=== PATIENT | female | born 1990 | race Caucasian/White ===

== ENCOUNTER 2018-10-13 15:17 | Emergency (ER) | payer BC, SELFPAY ==
[2018-10-13 15:30] VITALS: BP 129/75; PULSE 139; TEMP 37.6; O2SAT 96
[2018-10-13 16:04] LABS: Abs Immature Grans 0.03 k/cumm (0.0-0.09); Absolute Basophil Count 0.01 k/cumm (0.0-0.2); Absolute Lymphocyte Count 1.65 k/cumm (1.2-3.4); Absolute Monocyte Count 0.85 k/cumm (0.11-0.7); Absolute Neutrophil Count 10.95 k/cumm (1.2-6.7); Basophils % 0.1; HCT 39.6 % (36.0-46.0); HGB 13.3 g/dL (12.0-15.5); Immature Grans % 0.2; Lymphocytes % 12.2; Mean Corp. HGB Concentration 33.6 g/dL (32.0-36.0); Mean Corpuscular Hemoglobin 28.1 pg (27.0-33.0); Mean Corpuscular Volume 83.7 fL (80-95); Mean Platelet Volume 8.2 fL (8.0-11.0); Monocytes % 6.3; Neutrophils % 81.2; Platelet Count 471 x1000/uL (130-400); RBC 4.73 m/cumm (4.00-5.20); RBC Distribution Width 13.6 % (11.7-14.6); White Blood Cell Count 13.49 k/cumm (4.4-10.8)
[2018-10-13] MEDS: Acetaminophen 500 MG TAB 1000 MG PO (16:08)
[2018-10-13] MEDS: Lactated Ringers 1,000 ML 1000 ML IV (16:09)
[2018-10-13 16:21] LABS: ALT 46 U/L (12-78); AST 29 U/L (15-37); Albumin 3.8 g/dL (3.4-5.0); Alkaline Phosphatase 70 U/L (46-116); Anion Gap 13.8 mmol/L (3-11); BUN 8 mg/dL (7-18); Bilirubin, Total 0.3 mg/dL (0.2-1.0); CO2 23.2 mmol/L (21.0-32.0); CREATININE 0.82 mg/dL (0.55-1.02); Calcium 8.9 mg/dL (8.5-10.1); Chloride 98 mmol/L (98-107); Glucose 122 mg/dL (70-100); Potassium 3.4 mmol/L (3.5-5.1); Sodium 135 mmol/L (136-145); Total Protein 8.5 g/dL (6.4-8.2)
--- NOTE | 2018-10-13 16:52 | DI.RAD_ITS ---
SYMPTOM/DIAGNOSIS: COUGH, FEVER PA AND LATERAL CHEST: The exam is limited by respiratory motion on both views. The heart size is normal. The lungs are grossly clear. No large pneumothorax is seen. IMPRESSION: Limited exam due to respiratory motion. No acute abnormality.
--- NOTE | 2018-10-13 16:53 | W.ED.GENAD ---
Discharge Plan Disposition Patient Disposition: HOME Condition: Improving Discharge Details Chief Complaint: RespSymp Clinical Impression: Pneumonia ED Provider: Kurt Avelar Home Meds and New Rx's Prescriptions: New cefdinir 300 mg capsule 300 mg PO Q12H 10 Days Qty: 20 RF: 0 Continue ibuprofen 200 mg Tablet 2 tab PO Q8H PRNRF: 0 Discharge Instructions Instructions: Pneumonia (ED) Additional Instructions: Home to rest. Small, frequent sips of fluids to maintain hydration. Return to the ER if worsening. Medical Decision Making 28-year-old female presents with days of cough, congestion, fever. She has been breast-feeding. Exam is notable for left base rhonchi. Most likely a developing pneumonia versus bronchitis, with accompanying dehydration. Patient had IV access established, given acetaminophen, 2 L fluid, referred for laboratory testing and chest x-ray. Patient's laboratories reveal white blood cell count of 13, she has slightly low sodium of 135 and a discrete anion gap of 13. Chest x-ray preliminarily read as negative but I do feel there is developing infiltrate at the left heart border. Patient given a gram of Rocephin and I will place her on oral third generation cephalosporin which should be safe during breast-feeding which we discussed. Following fluids, patient felt improved, pulse improved, and she tolerated PO. Stable for outpatient management. Discussed with her home management as well as return precautions. HPI General Mode of arrival: ambulatory. Date/Time Provider Initiated Documentation: 10/13/18 15:47. Limitations to Documentation: no limitations. Information obtained by: patient. History of Present Illness 28 year old F presents to the emergency department with the chief complaint of Cough and congestion, fever over days time, described as moderate, Quality is described as aching, and is localized to the chest. Patient started experiencing this day(s) and it has been constant. No relieving factors improve symptom(s), No exacerbating factors reported . Patient notes fever/chills and malaise; denies shortness of breath. Related Data Home Medications Medication Instructions Recorded Confirmed cefdinir 300 mg PO Q12H 10 Days #20 cap 10/13/18 ibuprofen 2 tab PO Q8H PRN 10/13/18 10/13/18 Previous Rx's Medication Instructions Recorded cefdinir 300 mg PO Q12H 10 Days #20 cap 10/13/18 Allergies Allergy/AdvReac Type Severity Reaction Status Date / Time No Known Allergies Allergy Unverified 10/13/18 15:32 General Stated Complaint: RespSymp KAREEM: 3 Review of Systems Review of Systems 6 systems reviewed and otherwise negative [facility], [facility] Social History Smoking/Tobacco Use Status: Never Exam Narrative Exam Narrative: GEN: awake, alert, oriented 3. Pleasant, well groomed, interactive. HEAD: Normocephalic, atraumatic ENT: Mucous membranes moist, oropharynx unremarkable, External ear exam unremarkable EYES: PERRL, EOMI NECK: Full ROM, no ABIEL, no menigismus CHEST/RESP: Nontender, left base rhonchi CARDIOVASCULAR: Tachycardic, regular, no murmur, rub tiffanie. 2+ Rad pulse bilateral ABDOMEN: Soft, nontender, no mass. +Bowel sounds EXT: Full ROM, no edema, no rash Neuro: Grossly normal neurologic exam, conversant, interactive. Psych: Speech fluent, thoughts congruent, affect normal Course Vital Signs Temperature 37.6 C H 10/13/18 15:30 Pulse 139 H 10/13/18 15:30 Blood Pressure 129/75 10/13/18 15:30 Pulse Oximetry 96 10/13/18 15:30 Temperature 37.6 C H 10/13/18 15:30 Temperature Source Temporal Artery Scan 10/13/18 15:30 Pulse 139 H 10/13/18 15:30 Respiratory Effort Non-Labored 10/13/18 15:33 Blood Pressure 129/75 10/13/18 15:30 Blood Pressure Position Sitting 10/13/18 15:30 Pulse Oximetry 96 10/13/18 15:30 Oxygen Delivery Method Room Air 10/13/18 15:30 Oxygen Flow Rate 0 10/13/18 15:30 Pain Level 2 10/13/18 15:30 Lab/Test Results Lab/Test Results: Laboratory Tests Range/Units 10/13/18 10/13/18 15:57 15:57 WBC (4.4-10.8) k/cumm 13.49 H RBC (4.00-5.20) m/cumm 4.73 Hgb (12.0-15.5) g/dL 13.3 Hct (36.0-46.0) % 39.6 MCV (80-95) fL 83.7 MCH (27.0-33.0) pg 28.1 MCHC (32.0-36.0) g/dL 33.6 RDW (11.7-14.6) % 13.6 Plt Count (130-400) x1000/uL 471 H MPV (8.0-11.0) fL 8.2 Immature Gran % 0.2 Neutrophils % 81.2 Lymphocytes % 12.2 Monocytes % 6.3 Eosinophils % 0.0 Basophils % 0.1 Absolute Neutrophils (1.2-6.7) k/cumm 10.95 H Absolute Lymphocytes (1.2-3.4) k/cumm 1.65 Absolute Monocytes (0.11-0.7) k/cumm 0.85 H Absolute Eosinophils (0.0-0.7) k/cumm 0.00 Absolute Basophils (0.0-0.2) k/cumm 0.01 Sodium (136-145) mmol/L 135 L Potassium (3.5-5.1) mmol/L 3.4 L Chloride (98-107) mmol/L 98 Carbon Dioxide (21.0-32.0) mmol/L 23.2 Anion Gap (3-11) mmol/L 13.8 H BUN (7-18) mg/dL 8 Creatinine (0.55-1.02) mg/dL 0.82 Estimated GFR/1.73 m2 (mL/min/1.73m2) >= 60.00 Glucose (70-100) mg/dL 122 H Calcium (8.5-10.1) mg/dL 8.9 Total Bilirubin (0.2-1.0) mg/dL 0.3 AST (15-37) U/L 29 ALT (12-78) U/L 46 Alkaline Phosphatase (46-116) U/L 70 Total Protein (6.4-8.2) g/dL 8.5 H Albumin (3.4-5.0) g/dL 3.8
--- NOTE | 2018-10-13 16:56 | ED.GENADUL_ITS ---
Discharge Plan Disposition Patient Disposition: HOME Condition: Improving Discharge Details Chief Complaint: RespSymp Clinical Impression: Pneumonia ED Provider: Kurt Avelar Home Meds and New Rx's Prescriptions: New cefdinir 300 mg capsule 300 mg PO Q12H 10 Days Qty: 20 RF: 0 Continue ibuprofen 200 mg Tablet 2 tab PO Q8H PRNRF: 0 Discharge Instructions Instructions: Pneumonia (ED) Additional Instructions: Home to rest. Small, frequent sips of fluids to maintain hydration. Return to the ER if worsening. Medical Decision Making 28-year-old female presents with days of cough, congestion, fever. She has been breast-feeding. Exam is notable for left base rhonchi. Most likely a developing pneumonia versus bronchitis, with accompanying dehydration. Patient had IV access established, given acetaminophen, 2 L fluid, referred for laboratory testing and chest x-ray. Patient's laboratories reveal white blood cell count of 13, she has slightly low sodium of 135 and a discrete anion gap of 13. Chest x-ray preliminarily read as negative but I do feel there is developing infiltrate at the left heart border. Patient given a gram of Rocephin and I will place her on oral third generation cephalosporin which should be safe during breast-feeding which we discussed. Following fluids, patient felt improved, pulse improved, and she tolerated PO. Stable for outpatient management. Discussed with her home management as well as return precautions. HPI General Mode of arrival: ambulatory . Date/Time Provider Initiated Documentation: 10/13/18 15:47 . Limitations to Documentation: no limitations . Information obtained by: patient . History of Present Illness 28 year old F presents to the emergency department with the chief complaint of Cough and congestion, fever over days time, described as moderate, Quality is described as aching, and is localized to the chest. Patient started experiencing this day(s) and it has been constant. No relieving factors improve symptom(s), No exacerbating factors reported . Patient notes fever/ chills and malaise; denies shortness of breath. Related Data Home Medications Medication Instructions Recorded Confirmed cefdinir 300 mg PO Q12H 10 Days #20 cap 10/13/18 ibuprofen 2 tab PO Q8H PRN 10/13/18 10/13/18 Previous Rx's Medication Instructions Recorded cefdinir 300 mg PO Q12H 10 Days #20 cap 10/13/18 Allergies Allergy/AdvReac Type Severity Reaction Status Date / Time No Known Allergies Allergy Unverified 10/13/18 15:32 General Stated Complaint: RespSymp KAREEM: 3 Review of Systems Review of Systems 6 systems reviewed and otherwise negative [facility] Social History Smoking/Tobacco Use Status: Never Exam Narrative Exam Narrative: GEN: awake, alert, oriented 3. Pleasant, well groomed, interactive. HEAD: Normocephalic, atraumatic ENT: Mucous membranes moist, oropharynx unremarkable, External ear exam unremarkable EYES: PERRL, EOMI NECK: Full ROM, no ABIEL, no menigismus CHEST/RESP: Nontender, left base rhonchi CARDIOVASCULAR: Tachycardic, regular, no murmur, rub tiffanie. 2+ Rad pulse bilateral ABDOMEN: Soft, nontender, no mass. +Bowel sounds EXT: Full ROM, no edema, no rash Neuro: Grossly normal neurologic exam, conversant, interactive. Psych: Speech fluent, thoughts congruent, affect normal Course Vital Signs Temperature 37.6 C H 10/13/18 15:30 Pulse 139 H 10/13/18 15:30 Blood Pressure 129/75 10/13/18 15:30 Pulse Oximetry 96 10/13/18 15:30 Temperature 37.6 C H 10/13/18 15:30 Temperature Source Temporal Artery Scan 10/13/18 15:30 Pulse 139 H 10/13/18 15:30 Respiratory Effort Non-Labored 10/13/18 15:33 Blood Pressure 129/75 10/13/18 15:30 Blood Pressure Position Sitting 10/13/18 15:30 Pulse Oximetry 96 10/13/18 15:30 Oxygen Delivery Method Room Air 10/13/18 15:30 Oxygen Flow Rate 0 10/13/18 15:30 Pain Level 2 10/13/18 15:30 Lab/Test Results Lab/Test Results: Laboratory Tests Range/Units 10/13/18 10/13/18 15:57 15:57 WBC (4.4-10.8) k/cumm 13.49 H RBC (4.00-5.20) m/cumm 4.73 Hgb (12.0-15.5) g/dL 13.3 Hct (36.0-46.0) % 39.6 MCV (80-95) fL 83.7 MCH (27.0-33.0) pg 28.1 MCHC (32.0-36.0) g/dL 33.6 RDW (11.7-14.6) % 13.6 Plt Count (130-400) x1000/uL 471 H MPV (8.0-11.0) fL 8.2 Immature Gran % 0.2 Neutrophils % 81.2 Lymphocytes % 12.2 Monocytes % 6.3 Eosinophils % 0.0 Basophils % 0.1 Absolute Neutrophils (1.2-6.7) k/cumm 10.95 H Absolute Lymphocytes (1.2-3.4) k/cumm 1.65 Absolute Monocytes (0.11-0.7) k/cumm 0.85 H Absolute Eosinophils (0.0-0.7) k/cumm 0.00 Absolute Basophils (0.0-0.2) k/cumm 0.01 Sodium (136-145) mmol/L 135 L Potassium (3.5-5.1) mmol/L 3.4 L Chloride (98-107) mmol/L 98 Carbon Dioxide (21.0-32.0) mmol/L 23.2 Anion Gap (3-11) mmol/L 13.8 H BUN (7-18) mg/dL 8 Creatinine (0.55-1.02) mg/dL 0.82 Estimated GFR/1.73 m2 (mL/min/1.73m2) >= 60.00 Glucose (70-100) mg/dL 122 H Calcium (8.5-10.1) mg/dL 8.9 Total Bilirubin (0.2-1.0) mg/dL 0.3 AST (15-37) U/L 29 ALT (12-78) U/L 46 Alkaline Phosphatase (46-116) U/L 70 Total Protein (6.4-8.2) g/dL 8.5 H Albumin (3.4-5.0) g/dL 3.8
--- NOTE | 2018-10-13 17:08 | DI.VRAD_ITS ---
EXAM: XR Chest, 2 Views EXAM DATE/TIME: 10/13/2018 4:43 PM CLINICAL HISTORY: 28 years old, female; Signs and symptoms; Cough and fever TECHNIQUE: XR of the chest, 2 views. COMPARISON: No relevant prior studies available. FINDINGS: Lungs: Unremarkable. No consolidation. Pleural space: Unremarkable. No pleural effusion. No pneumothorax. Heart/Mediastinum: Unremarkable. No cardiomegaly. Bones/joints: Unremarkable. IMPRESSION: No acute findings. Dictated and Authenticated by: Boogie Phelps MD. Ordering:TJ PATEL MD
[2018-10-13] MEDS: Normal Saline 1,000 ML 1000 ML IV (17:44)
== END 2018-10-13 18:38 | disposition home or self-care (01) ==
LOC: ER 18:54
PROVIDERS: Emergency Provider Emergency Medicine
DX: J18.9 Pneumonia, unspecified organism (principal)
CPT/HCPCS: 36415; 80053; 96361; 96365; 99284; 71046; 85025; J0696